=== PATIENT | female | born 1980 | race Two or more races ===

== ENCOUNTER 2019-08-14 08:31 | Emergency (ER) | payer OTHER ==
[~2019-08-14] VITALS: Ht 167.6 cm; Wt 74.8 kg
== END 2019-08-14 12:59 | disposition home or self-care (01) ==
LOC: ER 08:31
DX: B33.8 Other specified viral diseases (principal); B96.0 Mycoplasma pneumoniae [M. pneumoniae] as the cause of diseases classified elsewhere

== ENCOUNTER 2019-10-02 15:46 | Emergency (ER) | payer OTHER ==
[~2019-10-02] VITALS: Ht 167.6 cm; Wt 74.8 kg
[2019-10-02] MEDS ORDERED: IPRAT-ALBUT 0.5-3 ML IH (20:58)
[2019-10-02] MEDS ORDERED: TUSNEL LIQUID178 ML PO (20:58)
[2019-10-02] MEDS ORDERED: ZITHROMAX500 MG PO (20:58)
== END 2019-10-02 21:09 | disposition home or self-care (01) ==
LOC: ER 15:46
DX: J06.9 Acute upper respiratory infection, unspecified (principal)

== ENCOUNTER 2021-03-11 10:57 | Outpatient (CLI) | payer OTHER ==
[~2021-03-11 10:57] MED LIST: IPRAT-ALBUT 0.5-3 ML IH; TUSNEL LIQUID178 ML PO; ZITHROMAX500 MG PO
== END 2021-03-11 10:58 | disposition home or self-care (01) ==
LOC: NUCLEAR 10:57
PROVIDERS: ATTEND Internal Medicine Cardiovascular Disease
DX: G45.9 Transient cerebral ischemic attack, unspecified (principal)